=== PATIENT | female | born 2005 | race Two or more races ===

== ENCOUNTER 2024-08-15 19:39 | Emergency (ER) | payer OTHER ==
[~2024-08-15] VITALS: Ht 170.2 cm; Wt 70.1 kg
--- NOTE | 2024-08-15 19:58 | ED.PDOC ---
Back pain HPI HPI Comments 19-YEAR-OLD FEMALE PATIENT AMBULATES INTO TRIAGE CC RIGHT THUMB INJURY 08/13 TO ACRYLIC NAIL. DENIES NUMBNESS OR WEAKNESS NOTES NO OTHER KNOWN INJURY. Time Seen by MD: 19:40 Reviewed Notes: Nurses Notes, Medications, Allergies Allergies: Coded Allergies: NO KNOWN ALLERGIES (Unverified , 08/15/24) Home Meds Discontinued Scripts Ibuprofen (Ibuprofen) 600 Mg Tab, 600 MG PO Q6HP PRN for 5 Days, #20 TAB Prov:FELICITA COREA [employer]NAG[employer] PROFESS[employer] 08/15/24 Information Source: Patient Past Medical History PAST MEDICAL HISTORY: Denies Surgical History: Denies all surgeries [employer] History: No Pertinent [employer] History Family History Family History: Reviewed,noncontributory to illness Social History Smoker: Non-Smoker Alcohol: Denies ETOH Use Drugs: Denies Drug Use Constitutional: denies: chills, diaphoresis, fatigue, fever, malaise, sweats, weakness, others EENTM: denies: blurred vision, double vision, ear bleeding, ear discharge, ear drainage, ear pain, ear ringing, eye pain, eye redness, hearing loss, mouth pain, mouth swelling, nasal discharge, nose bleeding, nose congestion, nose pain, photophobia, tearing, throat pain, throat swelling, voice changes, others Respiratory: denies: cough, hemoptysis, orthopnea, SOB at rest, shortness of breath, SOB with excertion, stridor, wheezing, others Cardiovascular: denies: chest pain, dizzy spells, diaphoresis, Dyspnea on exertion, edema, irregular heart beat, left arm pain, lightheadedness, palpitations, PND, syncope, others Gastrointestinal: denies: abdomen distended, abdominal pain, blood streaked bowels, constipated, diarrhea, dysphagia, difficulty swallowing, hematemesis, melena, nausea, poor appetite, poor fluid intake, rectal bleeding, rectal pain, vomiting, others Genitourinary: denies: abnormal vagina bleeding, burning, dyspareunia, dysuria, flank pain, frequency, hematuria, incontinence, pain, , vagina discharge, urgency, others Neurological: denies: dizziness, fainting, headache, left sided numbness, left sided weakness, numbness, paresthesia, pre-existing deficit, right sided numbness, right sided weakness, seizure, speech problems, tingling, tremors, weakness, others Musculoskeletal: denies: back pain, gout, joint pain, joint swelling, muscle pain, muscle stiffness, neck pain, others Integumetry: reports: others (RIGHT THUMB NAIL INJURY); denies: bruises, change in color, change in hair/nails, dryness, laceration, lesions, lumps, rash, wounds Allergic/Immunocompromised: denies: Difficulty Healing, Frequent Infections, Hives, Itching, others Hematologic/Lymphatic: denies: anemia, blood clots, easy bleeding, easy bruising, swollen glands, others Endocrine: denies: excessive hunger, excessive sweating, excessive thirst, excessive urination, flushing, intolerance to cold, intolerance to heat, unexplained weight gain, unexplained weight loss, others Psychiatric: denies: anxiety, bipolar disorder, depression, hopeless, panic disorder, schizophrenia, sleepless, suicidal, others Physical Exam General Appearance: No Apparent Distress, Normal HEENT: Pharynx Normal Neck: Full Range of Motion, Non-Tender Respiratory: Lungs Clear, No Respiratory Distress, Normal Breath Sounds Cardiovascular: No Murmur, Normal Peripheral Pulses, Regular Rate/Rhythm Breast Exam: Deferred Gastrointestinal: Non Tender, Soft Genitalia: Deferred Pelvic: Deferred Rectal: Deferred Extremities: Normal capillary refill, Normal range of motion Musculoskeletal : Apperance: Normal Neurologic: Alert, No Motor Deficits, Normal Affect, Normal Mood, No Sensory Deficits Cerebellar Function: Normal Reflexes: Normal Skin: Dry, Normal Color, Warm, Wounds (RIGHT NAIL WITH SURROUNDING EDEMA TRACE ECCHYMOSIS WITH NAIL PARTLY ATTACHED. MODERATE TENDERNESS ON PALPATION CAP REFILL LESS THAN 3 SECONDS STRENGTH SENSORY MOTION INTACT TRACE BLEEDING) Lymphatic: No Adenopathy Was a procedure done? Was a procedure done?: Yes Sedation Sedation?: No Informed consent obtained: Yes Nail Removal Nail Removal Location: 1st Finger nail Nail Removal preparation: Betadine Nail Removal Anesthetic: Lidocaine, Digital nerve block Wound Complexity: Full Informed Consent: Yes Risks/Benefits/alt. described: Yes Notes NAIL REMOVED SUCCESSFULLY PATIENT TOLERATED WELL MINIMAL BLOOD LOSS. Back Pain Differential Dx Differential Diagnosis: Fracture, Musculoskeletal Pain, Strain X-Ray, Labs, Meds, VS Vital Signs Date Time Temp Pulse Resp B/P (MAP) Pulse Ox O2 Delivery O2 Flow Rate FiO2 08/15/24 20:02 98.5 94 15 125/80 (95) 94 98.5 X-Ray, Labs, Meds, VS Comment FINDINGS: There is no fracture or dislocation. There is a well formed ossicle at the base of the 1st distal phalanx. No soft tissue swelling. IMPRESSION: 1. No acute fracture or dislocation of the right hand. 2. Old avulsion injury at the base of the 1st distal phalanx. SEE PROCEDURE NOTE. X-RAY SHOWS NO ACUTE FRACTURES OSSEOUS LESIONS OR DISLOCATIONS. SCRIPT TRIAL OF IBUPROFEN ADVISED TO TAKE MEDICATIONS PRESCRIBED SIDE EFFECTS DISCUSSED. THUMB WRAPPED WITH BANDAGE BLEEDING WAS CONTROLLED MINIMAL BLOOD LOSS. ADVISED ON RICE. FOLLOW UP WITH YOUR PCP WITHIN 2-3 DAYS FOR RE- EVALUATION ER RETURN PRECAUTIONS GIVEN PATIENT INDICATES UNDERSTANDING AND AGREES WITH DISCHARGE PLAN OF CARE. Images Reviewed?: Images reviewed and evaluated by me Time of 1ST Reevaluation: 19:40 Reevaluation 1ST: Unchanged Time of 2ND Reevaluation: 22:25 Reevaluation 2ND: Improved Patient Education/Counseling: Diagnosis, Treatment, Prognosis, Need For Follow Up Family Education/Counseling: Diagnosis, Treatment, Prognosis, Need For Follow Up SEPSIS Sepsis Screen Physician Orders R Hand 3 View Xray (08/15/24 20:00) Vital Signs Date Time Temp Pulse Resp B/P (MAP) Pulse Ox O2 Delivery O2 Flow Rate FiO2 08/15/24 20:02 98.5 94 15 125/80 (95) 94 98.5 Departure 1 Departure Time of Disposition: 22:29 Impression: Primary Impression: Avulsion of nail of left thumb Disposition: 01 HOME / SELF CARE / HOMELESS Condition: Stable Discharged With: Relative (Mother) Critical Care Note Critical Care Time?: No Stability Stability form required: FELICITA YoungP Aug 15, 2024 19:57
[2024-08-15 20:02] VITALS: BP 125/80; PULSE 94; RESP 15; TEMP 98.5; O2SAT 94
[2024-08-15] MEDS ORDERED: IBUPROFEN 600 MG TAB PO ONE (20:15)
--- NOTE | 2024-08-15 20:36 | DVH ---
XY R HAND 3 VIEW XRAY, INDICATION: THUMB INJURY TECHNICAL DATA: Frontal, oblique and lateral views were obtained of the right hand. COMPARISON: None FINDINGS: There is no fracture or dislocation. There is a well formed ossicle at the base of the 1st distal pha lanx. No soft tissue swelling. IMPRESSION: 1. No acute fracture or dislocation of the right hand. 2. Old avulsion injury at the base of the 1st distal phalanx.
[2024-08-15] MEDS ORDERED: IBUP-1454 PO (22:30)
== END 2024-08-15 23:14 | disposition home or self-care (01) ==
LOC: ER 19:39
DX: S61.102A Unspecified open wound of left thumb with damage to nail, initial encounter (principal); X58.XXXA Exposure to other specified factors, initial encounter; Y93.89 Activity, other specified; Y92.89 Other specified places as the place of occurrence of the external cause; Y99.8 Other external cause status
CPT/HCPCS: 73130